=== PATIENT | female | born 2005 | race Caucasian/White ===

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

== ENCOUNTER → 2023-08-12 | Outpatient (CLI) | payer OTHER, MEDICAID | LOC: M ADAMS 13:33 | PROVIDERS: ATTEND Physician Assistant | DX: M25.561 Pain in right knee (principal) ==

== ENCOUNTER 2025-07-15 17:00 | Emergency (ER) | payer MEDICAID, OTHER ==
[~2025-07-15] VITALS: Ht 139.7 cm; Wt 51.6 kg
[2025-07-15] MEDS: ACETAMINOPHEN 500 MG TAB PO ONE (19:42)
[2025-07-15] MEDS ORDERED: METH-1164 PO (20:04)
[2025-07-15 20:06] VITALS: BP 127/82; TEMP 99.7; O2SAT 98
== END 2025-07-15 20:10 | disposition home or self-care (01) ==
LOC: M ED 17:00
DX: M62.838 Other muscle spasm (principal)

== ENCOUNTER → 2025-08-22 | Outpatient (CLI) | payer OTHER ==
[~2025-08-22] MED LIST: METH-1164 PO
[2025-08-22 14:37] LABS: FREE T4 1.08 NG/DL (0.89-1.76)
== END ==
LOC: M WUC 11:02
PROVIDERS: ATTEND Physician Assistant
DX: F32.1 Major depressive disorder, single episode, moderate (principal)